=== PATIENT | female | born 1970 | race Asian ===

== ENCOUNTER 2016-08-23 19:29 | Emergency (ER) | payer OTHER ==
[~2016-08-23] VITALS: Ht 160 cm; Wt 99.8 kg
== END 2016-08-23 20:51 | disposition home or self-care (01) ==
LOC: ED 19:29
DX: R21 Rash and other nonspecific skin eruption (principal)
CPT/HCPCS: 99282

== ENCOUNTER 2017-04-29 14:06 | Outpatient (CLI) | payer OTHER | END 2017-04-29 23:40 | disposition home or self-care (01) | LOC: MAMMO 14:06 | DX: Z12.31 Encounter for screening mammogram for malignant neoplasm of breast (principal) ==

== ENCOUNTER 2018-02-02 14:23 | Outpatient (CLI) | payer OTHER | END 2018-02-02 20:11 | disposition home or self-care (01) | LOC: RAD 14:23 | DX: M47.896 Other spondylosis, lumbar region (principal) ==

== ENCOUNTER 2018-05-17 15:47 | Observation (INO) | payer OTHER ==
[~2018-05-17] VITALS: Ht 162.6 cm; Wt 108.4 kg
[2018-05-17 17:33] LABS: PLATELET COUNT 213 K/uL (152-353)
[2018-05-17 17:46] LABS: POTASSIUM 3.9 mmol/L (3.6-5.2)
[2018-05-17 20:00] VITALS: BP 148/82; TEMP 98.2
[2018-05-17 20:02] VITALS: BP 134/96; TEMP 97.7; Ht 162.6 cm; Wt 108.4 kg
[2018-05-17] MEDS ORDERED: PANTOPRAZOLE 40MG TA PO (20:43)
[2018-05-17] MEDS ORDERED: NORCO 10/325***1 TAB PO (20:44)
[2018-05-17] MEDS ORDERED: CELEBREX200 MG PO (20:45)
[2018-05-17] MEDS ORDERED: ALPR0.5T24 PO (20:46)
[2018-05-17] MEDS ORDERED: ALBUSOL INH (20:47)
[2018-05-17] MEDS ORDERED: PROAIR HFA108 MCG/AC INH (20:48)
[2018-05-17] MEDS ORDERED: HYDR200T3 PO (20:49)
[2018-05-17] MEDS ORDERED: LYRICA50 MG PO (20:50)
[2018-05-17] MEDS ORDERED: BISO5TAB2 PO (20:53)
[2018-05-17] MEDS ORDERED: ZOFRAN8 MG PO (20:54)
[2018-05-17] MEDS ORDERED: CYCL10TA35 PO (20:57)
[2018-05-18] VITALS: BP 116/80; TEMP 98.2
[2018-05-18 04:00] VITALS: BP 121/72; TEMP 98.2
[2018-05-18 08:09] VITALS: BP 129/81; TEMP 97.9
[2018-05-18 10:19] LABS: PLATELET COUNT 191 K/uL (152-353)
[2018-05-18 10:25] LABS: POTASSIUM 3.8 mmol/L (3.6-5.2)
[2018-05-18 12:06] VITALS: BP 134/83; TEMP 97.6
--- NOTE | 2018-05-18 12:10 | NUR ---
Patient was admitted wit pneumonia and IBW 120+/-10% and is 199% IBW and BMI at 41 and is higher than the highest stage of obesity and is on a Regular diet and kcal for IBW 4825-2739, Pro 55 to 65 grams both for IBW and fluids for weight 9235-2079 ml per day. Recommend: 1-NCS High Fiber needs to decrease weight
--- NOTE | 2018-05-18 17:04 | NUR ---
1700 PT LEFT WITH FAMILY VIA WC NO ACUTE DISTRESS NOTED.
== END 2018-05-18 17:00 | disposition home or self-care (01) ==
LOC: MED/SURG 15:47
PROVIDERS: ADMIT Family Medicine
DX: J09.X1 Influenza due to identified novel influenza A virus with pneumonia (principal); R05 Cough; I10 Essential (primary) hypertension; M79.7 Fibromyalgia
CPT/HCPCS: 80053; 83735; 84100; 85027; 87040; 93005; 94640; 94664; 94760; 99220; G0378; G0379; J1885

== ENCOUNTER 2018-12-26 16:38 | Outpatient (CLI) | payer OTHER ==
[~2018-12-26 16:38] MED LIST: ALBUSOL INH; ALPR0.5T24 PO; BISO5TAB2 PO; CELEBREX200 MG PO; CYCL10TA35 PO; HYDR200T3 PO; LYRICA50 MG PO; NORCO 10/325***1 TAB PO; PANTOPRAZOLE 40MG TA PO; PROAIR HFA108 MCG/AC INH; ZOFRAN8 MG PO
[2018-12-26 17:08] LABS: POTASSIUM 4.1 mmol/L (3.6-5.2); SODIUM 142 mmol/L (136-145)
[2018-12-26 17:09] LABS: PLATELET COUNT 233 K/uL (152-353)
== END 2018-12-26 20:12 | disposition home or self-care (01) ==
LOC: LABW 16:38
PROVIDERS: Nurse Practitioner Family
DX: R07.9 Chest pain, unspecified (principal)
CPT/HCPCS: 36415; 80053; 82550; 84484; 85027

== ENCOUNTER 2019-02-08 16:03 | Outpatient (CLI) | payer OTHER | END 2019-02-08 23:22 | disposition home or self-care (01) | LOC: RAD 16:03 | DX: S92.812A Other fracture of left foot, initial encounter for closed fracture (principal) ==

== ENCOUNTER 2019-10-18 10:09 | Outpatient (CLI) | payer OTHER | END 2019-10-18 20:16 | disposition home or self-care (01) | LOC: RAD 10:09 | DX: Z13.820 Encounter for screening for osteoporosis (principal); M81.8 Other osteoporosis without current pathological fracture ==

== ENCOUNTER 2020-06-20 08:48 | Outpatient (CLI) | payer OTHER | END 2020-06-20 21:12 | disposition home or self-care (01) | LOC: CT 08:48 | PROVIDERS: ATTEND Nurse Practitioner Primary Care | DX: K43.6 Other and unspecified ventral hernia with obstruction, without gangrene (principal) | CPT/HCPCS: 36415; 82565; 84520; Q9963 ==

== ENCOUNTER 2021-01-30 16:58 | Emergency (ER) | payer OTHER ==
[~2021-01-30] VITALS: Ht 162.6 cm; Wt 108.0 kg
[2021-01-30 17:05] VITALS: TEMP 97
[2021-01-30 18:12] VITALS: BP 164/89
== END 2021-01-30 18:12 | disposition home or self-care (01) ==
LOC: ED 16:58
DX: M54.31 Sciatica, right side (principal)
CPT/HCPCS: 96372; 99282; J1885

== ENCOUNTER 2021-02-03 13:05 | Outpatient (CLI) | payer OTHER | END 2021-02-03 21:56 | disposition home or self-care (01) | LOC: RAD 13:05 | PROVIDERS: ATTEND Nurse Practitioner Family | DX: M72.2 Plantar fascial fibromatosis (principal) ==

== ENCOUNTER 2021-06-04 12:01 | Outpatient (CLI) | payer OTHER ==
[2021-06-04 13:06] LABS: PLATELET COUNT 256 K/uL (152-353)
[2021-06-04 13:25] LABS: POTASSIUM 4.5 mmol/L (3.6-5.2)
== END 2021-06-04 19:14 | disposition home or self-care (01) ==
LOC: RAD 12:01
PROVIDERS: ATTEND Nurse Practitioner Primary Care
DX: J20.9 Acute bronchitis, unspecified (principal); R07.89 Other chest pain
CPT/HCPCS: 36415; 80053; 82550; 82553; 84484; 85027

== ENCOUNTER 2021-06-08 11:42 | Outpatient (CLI) | payer OTHER | END 2021-06-08 18:54 | disposition home or self-care (01) | LOC: LABW 11:42 | PROVIDERS: ATTEND Nurse Practitioner Primary Care | DX: E87.8 Other disorders of electrolyte and fluid balance, not elsewhere classified (principal) | CPT/HCPCS: 36415; 80053 ==

== ENCOUNTER 2022-09-05 15:54 | Emergency (ER) | payer OTHER ==
[~2022-09-05] VITALS: Ht 162.6 cm; Wt 109.3 kg
[2022-09-05 16:08] VITALS: BP 161/88; TEMP 97
== END 2022-09-05 16:36 | disposition home or self-care (01) ==
LOC: ED 15:54
DX: M25.461 Effusion, right knee (principal); M17.5 Other unilateral secondary osteoarthritis of knee
CPT/HCPCS: 96372; 99282; J1885

== ENCOUNTER 2022-09-08 12:31 | Outpatient (CLI) | payer OTHER ==
[2022-09-08 12:52] LABS: PLATELET COUNT 233 K/uL (152-353)
[2022-09-08 13:09] LABS: POTASSIUM 4.2 mmol/L (3.6-5.2); SODIUM 142 mmol/L (136-145)
== END 2022-09-08 19:08 | disposition home or self-care (01) ==
LOC: LABW 12:31
PROVIDERS: ATTEND Nurse Practitioner Family
DX: R60.0 Localized edema (principal); M25.561 Pain in right knee
CPT/HCPCS: 36415; 80053; 82550; 83880; 84484; 85027

== ENCOUNTER 2022-12-28 09:11 | Outpatient (CLI) | payer OTHER | END 2022-12-28 18:57 | disposition home or self-care (01) | LOC: MAMMO 09:11 | PROVIDERS: ATTEND Nurse Practitioner Family | DX: Z12.31 Encounter for screening mammogram for malignant neoplasm of breast (principal) ==